=== PATIENT | female | born 1980 ===

== ENCOUNTER → 2023-10-25 | Outpatient (CLI) | payer OTHER ==
[2023-11-02 12:48] LABS: HPV HIGH RISK BY TMA Not Detected; HPV SOURCE Cervical
== END ==
LOC: LAB 12:56 → LAB SHORT 12:56
PROVIDERS: Advanced Practice Midwife
DX: Z01.419 Encounter for gynecological examination (general) (routine) without abnormal findings (principal)
CPT/HCPCS: 87624; G0123

== ENCOUNTER → 2024-11-10 | Outpatient (CLI) | payer OTHER | END | disposition home or self-care (01) | LOC: LAB 14:03 → LAB SHORT 14:03 | PROVIDERS: Advanced Practice Midwife | DX: Z87.42 Personal history of other diseases of the female genital tract (principal) | CPT/HCPCS: 87624; G0145 ==